=== PATIENT | female | born 1955 | race Caucasian/White ===

== ENCOUNTER 2018-12-28 19:35 | Emergency (ER) | payer OTHER ==
[~2018-12-28] VITALS: Ht 154.9 cm; Wt 69.9 kg
[2018-12-28 19:45] VITALS: Ht 154.9 cm; Wt 69.9 kg
[2018-12-28 23:09] VITALS: BP 144/69
== END 2018-12-28 23:09 | disposition home or self-care (01) ==
LOC: ED 19:35
DX: R07.89 Other chest pain (principal); R05 Cough

== ENCOUNTER 2020-10-26 12:15 | Emergency (ER) | payer OTHER ==
[~2020-10-26] VITALS: Ht 154.9 cm; Wt 72.1 kg
[2020-10-26 12:16] VITALS: BP 155/105; Ht 154.9 cm; Wt 72.1 kg
== END 2020-10-26 13:00 | disposition home or self-care (01) ==
LOC: ED 12:15
DX: U07.1 COVID-19 (principal); I10 Essential (primary) hypertension
CPT/HCPCS: U0003